=== PATIENT | female | born 1970 | race Caucasian/White ===

== ENCOUNTER 2018-01-05 07:13 | Day surgery (SDC) | payer OTHER, SELFPAY ==
[2018-01-05 07:38] VITALS: BP 134/69; PULSE 78; RESP 16; TEMP 36.6; O2SAT 99; BMI 51.2
[2018-01-05 07:44] LABS: Internal QC Validated? YES +Cl - CLEAR BKGD; Pregnancy, Urine Negative Negative
[2018-01-05 07:45] LABS: Hematocrit 34.9 % (37-47); Hemoglobin 10.5 g/dl (12.0-15.0); Mean Corp Hgb Conc 30.1 g/gl (32-36); Mean Corpuscular Hgb 22.9 pg (27.0-32.0); Mean Platelet Vol. 8.3 fl (6.2-12.0); Platelet Count 416 K/mm3 (150-450); RBC Distribution Width CV 16.5 % (11.6-14.6); Red Blood Count 4.59 M/mm3 (4.2-5.4); Scan Indicated on CBC? Y/N NO; White Blood Count 6.9 K/mm3 (4.4-11.0)
--- NOTE | 2018-01-05 08:45 | EMB_PTH ---
PATIENT: JOSEPH FISCHER LOC: [facility] U#:[id number] AGE/SX: 47/F ROOM: RE01/05/[address]: Dr. Gillian Fonseca, MDDOB: 1970 BED: DIS: 01/05/2018 SPEC #: [id number] RECD: 01/05/18 10:23 STATUS: ALAN NEFTALY #: [id number] PAL: 01/05/18 08:[address]: Gillian Fonseca DEPT: SURGICAL PATHOLOGY RECD BY: Zac Mckenna ENTERED: 01/05/18 12:11 SP TYPE: ENDOM BX/C OTHR DR: Dr. Rasheed Hamilton, DO Tissues: Endometrium, NOS Procedures: Surgery Specimen Level IV HEADER OPERATION: Hysteroscopy, dilation and curettage, Mirena IUD insertion PRE-OP DIAGNOSIS: Abnormal uterine bleeding TISSUE SUBMITTED: Endometrial curettings MICROSCOPIC DIAGNOSIS Endometrial curettings: Mildly disordered proliferative endometrium with focal glandular breakdown. DAVIDA:singh 01/06/18 MICROSCOPIC DESCRIPTION Slides are reviewed. GROSS DESCRIPTION Received in fixative is one container labeled with the patient's name and designated endometrial curettings. The specimen consists of multiple fragments of congested, hemorrhagic soft tissue mixed with blood clot that in aggregate measure 5 x 3 x 0.3 cm. The entire specimen is submitted in two cassettes. / DAVIDA:singh 01/05/18 TC:5 CPT: 71190
--- NOTE | 2018-01-05 09:59 | PCM.OP.BLANK ---
Operative Report Date of Procedure: 01/05/[address] Gillian MurphyMedeiros Propellant Charge Loader: Racehl Bautista MS3 Preoperative diagnosis: Abnormal uterine bleeding Postoperative diagnosis: Same Procedure performed: Hysteroscopy, dilation and curettage, Mirena insertion Complications: None Implantable devices: IUD Estimated blood loss: 5 cc Drains: None Anesthesia: MAC Informed consent was obtained the patient was taken the operating room she was placed in supine position. She was given anesthesia. She was then placed in the [facility] where she was prepped and draped in the normal sterile fashion. At this time the weighted speculum was placed in the posterior fornix of vagina. Single-tooth tenaculum was used to gently grasp the anterior lip the cervix. At this time the uterine cavity was sounded to approximately 10 cm. Gentle dilatation was performed once adequate dilatation of the cervix was achieved the hysteroscope using normal saline as a distention medium was placed. abundant Endometrial tissue . Otherwise no gross abnormalities. Tubal ostia visualized. This time hysteroscopy was complete. Sharp curettage was performed. Moderate amount of endometrial tissue removed. This will be sent to pathology for evaluation. Mirena IUD was then opened. And it was placed without difficulty. Procedure was deemed complete successful there are no complications. Anticipated normal postoperative course. Instrument lap count correct ?2. Mirena lot number was [id number] Vaginal Sweep was negative.
--- NOTE | 2018-01-05 10:04 | OP.PCM_ITS ---
Operative Report Date of Procedure: 01/05/[address] Gillian MurphyMedeiros [place] Supervisor: Rachel Bautista MS3 Preoperative diagnosis: Abnormal uterine bleeding Postoperative diagnosis: Same Procedure performed: Hysteroscopy, dilation and curettage, Mirena insertion Complications: None Implantable devices: IUD Estimated blood loss: 5 cc Drains: None Anesthesia: MAC Informed consent was obtained the patient was taken the operating room she was placed in supine position. She was given anesthesia. She was then placed in the [facility] where she was prepped and draped in the normal sterile fashion. At this time the weighted speculum was placed in the posterior fornix of vagina. Single-tooth tenaculum was used to gently grasp the anterior lip the cervix. At this time the uterine cavity was sounded to approximately 10 cm. Gentle dilatation was performed once adequate dilatation of the cervix was achieved the hysteroscope using normal saline as a distention medium was placed. abundant Endometrial tissue . Otherwise no gross abnormalities. Tubal ostia visualized. This time hysteroscopy was complete. Sharp curettage was performed. Moderate amount of endometrial tissue removed. This will be sent to pathology for evaluation. Mirena IUD was then opened. And it was placed without difficulty. Procedure was deemed complete successful there are no complications. Anticipated normal postoperative course. Instrument lap count correct ?2. Mirena lot number was [id number] Vaginal Sweep was negative.
--- NOTE | 2018-01-05 10:05 | PCM.DC.D&C ---
Discharge Diet: No Restrictions Discharge Activity: Return to Normal Activity, May Shower, May Take a Tub Bath - in 2 weeks. Allergies/Adverse Reactions: Allergies amoxicillin Allergy (Verified 12/29/17 09:56) Rash mold Adverse Reaction (Verified 12/29/17 09:56) Other Medications to take at Discharge Escitalopram Oxalate [Lexapro] 10 mg PO QHS 12/29/17 Multivitamin [Daily Multiple Vitamin] 1 each PO DAILY 12/29/17 Misoprostol [Cytotec] 200 mcg PO UD 01/05/18 Primary Care Physician: Rasheed Hamilton DO [Primary Care Provider] -
[2018-01-05 10:11] VITALS: BP 118/70; BP 134/69; PULSE 78; RESP 16; TEMP 36.4; O2SAT 96
[2018-01-05 10:15] VITALS: BP 110/82; BP 134/69; PULSE 78; RESP 16; O2SAT 97
[2018-01-05 10:20] VITALS: BP 118/78; BP 134/69; PULSE 75; RESP 16; O2SAT 98
[2018-01-05 10:25] VITALS: BP 125/85; BP 134/69; PULSE 68; RESP 14; TEMP 36.5; O2SAT 98
[2018-01-05 11:00] VITALS: BP 134/69
== END 2018-01-05 11:20 | disposition home or self-care (01) ==
LOC: SDC 07:16 → AC 07:21
PROVIDERS: Anesthesiology; Family Provider Student in an Organized Health Care Education/Training Program; PCP Student in an Organized Health Care Education/Training Program; Visit Provider Obstetrics & Gynecology
PROC: 0UDB8ZZ Extraction of Endometrium, Via Natural or Artificial Opening Endoscopic (ICD-10-PCS; CPT 58558; principal; 2018-01-05 08:35)
DX: N85.00 Endometrial hyperplasia, unspecified (principal); N93.9 Abnormal uterine and vaginal bleeding, unspecified; F41.1 Generalized anxiety disorder; E66.9 Obesity, unspecified; Z68.43 Body mass index [BMI] 50.0-59.9, adult
CPT/HCPCS: 58300; 58558; 36415; 81025; 85027; 88305; J7120; J2405